=== PATIENT | male | born 1960 | race Caucasian/White ===

== ENCOUNTER 2023-11-30 10:31 | Outpatient (REF) | payer OTHER, MEDICAID, SELFPAY ==
--- NOTE | 2023-11-30 10:35 | EMG_ITS ---
Chief complaint: 1 month onset of right hand/finger swelling, unable to make a canvas baster. Denies numbness. Chronic shoulder pain. Reason for referral: Evaluate for radiculopathy Referred by: Zofia Contreras APRN Procedure done: Right upper extremity NCS/EMG Precautions and/or limitations: None The limb temperature was monitored continuously and remained between 32-36 degrees C during the performance of the NCS. Ulnar motor NCS was performed with moderate elbow flexion between 70-90 degrees, with across-elbow distance of 10 cm. Nerve Conduction Studies Anti Sensory Summary Table ?Stim Site NR Onset (ms) Norm Onset (ms) Peak (ms) Norm Peak (ms) O-P Amp (?V) Norm O-P Amp Site1 Site2 Delta-0 (ms) Dist (cm) Howie (m/s) Norm Howie (m/s) Right Median Anti Sensory (2nd Digit) Wrist ? 2.6 3.3 <3.6 4.1 >10 Wrist 2nd Digit 2.6 14.0 54 Right Radial Anti Sensory (Thumb) Forearm ? 1.5 2.0 <3.1 5.3 Forearm Thumb 1.5 0.0 Right Ulnar Anti Sensory (5th Digit) Wrist ? 2.4 2.9 <3.7 5.6 >15.0 Wrist 5th Digit 2.4 14.0 58 Motor Summary Table ?Stim Site NR Onset (ms) Norm Onset (ms) O-P Amp (mV) Norm O-P Amp iAmp (mV) Amp (1st) (%) Site1 Site2 Delta-0 (ms) Dist (cm) Howie (m/s) Norm Howie (m/s) Right Median Motor (Abd Poll Brev) Wrist ? 3.4 <3.9 3.8 >4.5 4.2 100.0 Elbow Wrist 3.9 22.0 56 >45 Elbow ? 7.3 3.5 4.0 92.1 Right Ulnar Motor (Abd Dig Minimi) Wrist ? 2.6 <3.0 4.2 >5 5.2 100.0 B Elbow Wrist 3.6 22.0 61 >45 B Elbow ? 6.2 3.8 4.8 90.5 A Elbow B Elbow 2.6 10.0 38 >45 A Elbow ? 8.8 2.7 3.4 64.3 EMG ?Side Muscle Nerve Root Ins Act Fibs Psw Amp Dur Poly Recrt Int Pat Comment Right 1stDorInt Ulnar C8-T1 Nml Nml Nml Nml Nml 0 Nml Complete Right Biceps Musculocut C5-6 Nml Nml Nml Nml Nml 0 Nml Complete Right Triceps Radial C6-7-8 Nml Nml Nml Nml Nml 0 Nml Complete Right Deltoid Axillary C5-6 Nml Nml Nml Nml Nml 0 Nml Complete Right FlexCarpiUln Ulnar C8,T1 Nml Nml Nml Nml Nml 0 Nml Complete Paraspinal EMG ?Side Muscle Nerve Root Ins Act Fibs Psw Comment Right Cervical Upper Rami Nml Nml Nml Right Cervical Mid Rami Nml Nml Nml Right Cervical Lower Rami Nml Nml Nml FINDINGS: Right median motor nerve showed normal distal latency, small amplitude and normal conduction velocity. Right ulnar motor nerve showed normal distal latency, small amplitude and slow conduction velocity across the elbow. Right median sensory nerve showed prolonged peak latency. Right ulnar sensory nerve showed prolonged peak latency. All other nerves tested were within normal. Concentric needle EMG was performed in selected muscles of the right upper extremity and cervical paraspinal. Study did not reveal signs of electric abnormalities as shown in the table below. IMPRESSION: 1. This is an abnormal study. 2. 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 3. 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 4. There is no electrodiagnostic evidence for brachial plexopathy or cervical radiculopathy. CLINICAL COMMENT: On review of past medical records, he had seen Dr. Peter, rheumatology, 2020, with diagnosis of inflammatory arthritis with positive anti CCP at that time. Thank you for your kind referral. Karol Kimball MD, ILYA Board Certified, [place] [employer] (ABPMR) Board Certified, [place] [employer] Electro[employer] (ABEM) CODIN [id number] MTDD
== END 2023-11-30 10:32 | disposition home or self-care (01) ==
LOC: HO.NEURO 10:31
PROVIDERS: PCP Internal Medicine; Visit Provider Nurse Practitioner Family
DX: M54.12 Radiculopathy, cervical region (principal)
CPT/HCPCS: 95886; 95909

== ENCOUNTER → 2023-11-30 10:35 | Outpatient (BNV) | payer OTHER, MEDICAID, SELFPAY | PROVIDERS: PCP Internal Medicine; Visit Provider Physical Medicine & Rehabilitation | DX: G56.01 Carpal tunnel syndrome, right upper limb (principal); G56.21 Lesion of ulnar nerve, right upper limb | CPT/HCPCS: 95886; 95909 ==